=== PATIENT | female | born 1985 ===

== ENCOUNTER 2017-03-25 18:29 | Emergency (ER) | payer OTHER ==
[2017-03-25 18:46] VITALS: BP 109/70; PULSE 85; RESP 19; TEMP 97.8; O2SAT 99
--- NOTE | 2017-03-25 19:28 | ED PDOC ---
HPI: Back Time Seen by Provider: 03/25/17 19:23 Chief Complaint (Nursing): Back Pain Chief Complaint (Provider): back pain History Per: Patient History/Exam Limitations: no limitations Current Symptoms Are (Timing): Still Present Additional Complaint(s): 32 y/o female presents to the emergency department with a complaint of a lower back pain after she slipped and fall down a flight of stairs prior to arrival. Reports she cannot lift her legs and has difficulty with getting up from a chair. States she used a patch for the relief of pain. Denies urinary symptoms or abdominal pain. Past Medical History Reviewed: Historical Data, Nursing Documentation, Vital Signs Vital Signs: Last Vital Signs Temp 97.8 F 03/25/17 18:42 Pulse 85 03/25/17 18:42 Resp 19 03/25/17 18:42 BP 109/70 03/25/17 18:42 Pulse Ox 99 03/25/17 18:42 - Medical History PMH: No Chronic Diseases - Surgical History Surgical History: No Surg Hx - Family History Family History: States: Unknown Family Hx - Living Arrangements Living Arrangements: With Family - Social History Current smoker - smoking cessation education provided: No Alcohol: None Drugs: Denies - Home Medications Home Medications: Ambulatory Orders Medication Instructions Recorded Cyclobenzaprine [Cyclobenzaprine 10 mg PO BID #14 tab 03/25/17 HCl] Ibuprofen [Motrin] 400 mg PO Q6 #30 tab 03/25/17 - Allergies Allergies/Adverse Reactions: Allergies Allergy/AdvReac Type Severity Reaction Status Date / Time No Known Allergies Allergy Verified 03/25/17 18:46 Review of Systems ROS Statement: Except As Marked, All Systems Reviewed And Found Negative Gastrointestinal: Negative for: Abdominal Pain Genitourinary Female: Negative for: Dysuria, Frequency, Incontinence, Hematuria Musculoskeletal: Positive for: Back Pain Physical Exam - Reviewed Nursing Documentation Reviewed: Yes Vital Signs Reviewed: Yes - Physical Exam Appears: Positive for: Non-toxic, No Acute Distress Head Exam: Positive for: ATRAUMATIC, NORMAL INSPECTION, NORMOCEPHALIC Skin: Positive for: Normal Color, Warm, Dry Back: Positive for: Other (Lumbar mildline tenderness with surrounding paravertebral tenderness noted. ). Negative for: Normal Inspection, L CVA Tenderness, R CVA Tenderness, Muscle Spasm Extremity: Positive for: Normal ROM (Full range of motion of the knees bilaterally. Able to walk and bare weight with limp. ). Negative for: Other ( Negative straight leg test bilaterally. No hip pain bilaterally. ) Neurologic/Psych: Positive for: Alert, Oriented ( x3) - ECG O2 Sat by Pulse Oximetry: 99 (RA) Pulse Ox Interpretation: Normal Medical Decision Making Medical Decision Making: Time: 1927 Initial impression: Back pain status post fall Initial plan: --Urine DIP --Lumbar Spine Complete x-ray --Motrin 600 mg PO --Reevaluation Time: 2009 --Lumbar x-ray read by me: shows no acute fractures. --Patient advised to take medication (Rx for Motrin 400 mg and Cyclobenzaprine HCl 10 mg) to help with pain and follow up with primary care doctor to schedule physical therapy. Time: 2016 --Patient is medically stable for discharge. --Patient requires no further treatment in the ED at this time. Counseling was provided and all questions were answered regarding diagnosis and need for follow up with referred clinics. There is agreement to discharge plan. Return if symptoms persist or worsen. Clinical Impression: Back injury Scribe Attestation: Documented by Eva Bruno, acting as a scribe for Geeta Higuera PA-C Provider Scribe Attestation: All medical record entries made by the Scribe were at my direction and personally dictated by me. I have reviewed the chart and agree that the record accurately reflects my personal performance of the history, physical exam, medical decision making, and the department course for this patient. I have also personally directed, reviewed, and agree with the discharge instructions and disposition. Disposition - Clinical Impression Clinical Impression: Back injury - Disposition Referrals: [facility] [Outside] [facility] [Outside] [facility] [Outside] Disposition: Routine/Home Disposition Time: 20:17 Condition: STABLE Prescriptions: Cyclobenzaprine [Cyclobenzaprine HCl] 10 mg PO BID #14 tab Ibuprofen [Motrin] 400 mg PO Q6 #30 tab Instructions: Core Strengthening Exercises (GEN), Back Exercises (ED), Upper Back Exercises (GEN) Forms: [employer] (Icelandic) Print Language: MONGOLIAN
--- NOTE | 2017-03-26 13:15 | RAD ---
PROCEDURE: Radiographs of the Lumbar Spine. HISTORY: tenderness midline COMPARISON: No prior. FINDINGS: BONES: Normal alignment. No listhesis. No fracture. DISC SPACES: Unremarkable. OTHER FINDINGS: Constipation without fecal impaction or obstruction. IMPRESSION: Unremarkable radiographs of the lumbar spine. Concordant results with the preliminary interpretation rendered by the emergency department physician procedure.
== END 2017-03-25 20:20 | disposition home or self-care (01) ==
LOC: H.ER 18:29
DX: S39.92XA Unspecified injury of lower back, initial encounter (principal); W10.9XXA Fall (on) (from) unspecified stairs and steps, initial encounter; Y92.89 Other specified places as the place of occurrence of the external cause